=== PATIENT | male | born 1965 | race Two or more races ===

== ENCOUNTER 2017-08-20 17:37 | Emergency (ER) | payer OTHER ==
[~2017-08-20] VITALS: Ht 162.6 cm; Wt 68.0 kg
[2017-08-20] MEDS ORDERED: Bacitracin Oint UD TOPIC ONE (18:00)
[2017-08-20] MEDS ORDERED: Lidocaine 1% 10mg/ml/Epi 0.005mg/ml 30ml vial INJ ONE (18:00)
[2017-08-20] MEDS ORDERED: CEPHALEXIN500 MG ORAL (18:41)
[2017-08-20] MEDS ORDERED: IBUPROFEN600 MG ORAL (18:41)
[2017-08-20 18:54] VITALS: BP 145/75
--- NOTE | 2017-08-20 18:56 | Emergency Room Report ---
History of Present Illness General Chief Complaint: Laceration Source: Patient Present Illness HPI The patient is a 51-year-old male presenting for right arm pain. He states that he was at work and cleaning a metal object when his arm struck against a sharp metal piece and he experienced pain and bleeding. This occurred just prior to arrival. Pain is now an 8/10 dull ache and does not radiate. Worse with touch. He denies any numbness or tingling. He states the last tetanus shot was within the past 3 years. He denies any other symptoms Allergies: Coded Allergies: No Known Allergies (Unverified , 08/20/17) Patient History Past Medical History: see triage record Pertinent Family History: none Reviewed Nursing Documentation: PMH: Agreed, PSxH: Agreed Nursing Documentation-PMH Past Medical History: No History, Except For Hx Cardiac Problems: Yes - cardiac cath, possible stent? Hx Hypertension: Yes Hx Diabetes: Yes Review of Systems All Other Systems: negative except mentioned in HPI Physical Exam Vital Signs Date Time Temp Pulse Resp B/P (MAP) Pulse Ox O2 Delivery O2 Flow Rate FiO2 08/20/17 17:46 98.1 80 16 176/96 99 Room Air Sp02 EP Interpretation: reviewed, normal General Appearance: no apparent distress, alert, GCS 15, non-toxic Head: normocephalic, atraumatic Eyes: bilateral eye normal inspection, bilateral eye PERRL ENT: hearing grossly normal, normal pharynx, no angioedema, normal voice Neck: full range of motion, supple/symm/no masses Respiratory: chest non-tender, lungs clear, normal breath sounds, speaking full sentences Musculoskeletal: back normal, gait/station normal, normal range of motion Neurologic: alert, oriented x3, responsive, motor strength/tone normal, sensory intact, speech normal Psychiatric: judgement/insight normal, memory normal, mood/affect normal, no suicidal/homicidal ideation Skin: laceration - 4cm linear laceration to R mid dorsal forearm Lymphatic: no adenopathy Procedures Laceration/Wound Repair Laceration/Wound Repair : Consent: Verbal Wound Location: upper extremity Wound's Depth, Shape: superficial, linear Wound Length (cm): 4 Wound Explored: clean Irrigated w/ Saline (ccs): 100 Betadine Prep?: Yes Anesthesia: 1% Lidocaine, Lidocaine w/ Epi Volume Anesthetic (ccs): 4 Wound Debrided: minimal Wound Repaired With: sutures Suture Size/Type: 4:0, nylon Number of Sutures: 4 Layer Closure?: No Sterile Dressing Applied?: Yes Splint Applied?: No Sling Applied?: No Patient Tolerated: Well Complications: None Medical Decision Making PA Attestation Dr. Woo is my supervising physician. Patient management was discussed with my supervising physician Diagnostic Impression: Primary Impression: Laceration of arm Qualified Codes: S41.111A - Laceration without foreign body of right upper arm , initial encounter ER Course The patient is a 51-year-old male presenting for right arm laceration Ddx considered include but not limited to fracture, tendon/ligament injury, avulsion, nerve damage PE: 4cm linear laceration to R mid dorsal forearm. Minimal bleeding. Full AROM of the wrist and fingers. The wound was irrigated with normal saline and cleaned with betadine. A 27g needle was used to administer 4mL of lidocaine w/ epi for local anaesthesia. 4 sutures were placed with 4-0 Nylon. The wound was well approximated and the patient tolerated the procedure well. The wound was then cleaned and bacitracin was applied. The patient is discharged with prescription for Motrin and Keflex and will follow up with primary doctor. He is given suture care instructions Last Vital Signs Date Time Temp Pulse Resp B/P (MAP) Pulse Ox O2 Delivery O2 Flow Rate FiO2 08/20/17 17:46 98.1 80 16 176/96 99 Room Air Status: improved Disposition: HOME, SELF-CARE Condition: Improved Scripts Cephalexin* (KEFLEX*) 500 Mg Capsule 500 MG ORAL EVERY 12 HOURS, #14 CAP 0 Refills Prov: TERZIAN,JOSH P.A. 08/20/17 Ibuprofen* (MOTRIN*) 600 Mg Tablet 600 MG ORAL Q8H Y for For Pain, #30 TAB 0 Refills Prov: TERZIAN,JOSH P.A. 08/20/17 Patient Instructions: Laceration Care, Adult Additional Instructions: I discussed my findings with the patient. All questions and concerns have been answered. Treatment and medication compliance have been addressed. I advised the patient that they need to follow up with PMD in 7 days for wound check and suture removal. If you are unable to see PMD, return to the ED in 7 days. Return to ED if pain remains or worsens, you notice discharge from the wound, the wound continues to bleed, the suture/s fall out, you notice a fever or chills, or for any reason. Patient is advised to keep the wound clean. Patient verbalized understanding of discharge instructions. JOSH DECKER Aug 20, 2017 18:56
== END 2017-08-20 19:00 | disposition home or self-care (01) ==
LOC: EMR 18:09
DX: S51.811A Laceration without foreign body of right forearm, initial encounter (principal); W26.8XXA Contact with other sharp object(s), not elsewhere classified, initial encounter; Y92.89 Other specified places as the place of occurrence of the external cause; Y99.0 Civilian activity done for income or pay; E11.9 Type 2 diabetes mellitus without complications; I10 Essential (primary) hypertension
CPT/HCPCS: 99284